=== PATIENT | female | born 1990 | race Caucasian/White ===

== ENCOUNTER 2016-04-13 16:11 | Emergency (ER) | payer OTHER, MEDICAID ==
[2016-04-13 16:46] VITALS: RESP 16; TEMP 98.8
[2016-04-13] MEDS ORDERED: NS 1,000 ML IV ONE (16:59)
--- NOTE | 2016-04-13 17:01 | EDPHY ---
H & P Time Seen by Provider: 04/13/16 16:41 HPI/ROS: Chief complaint. Abdominal pain HPI. Patient is a 25-year-old female with low abdominal cramping for 4 days. Some throbbing yesterday in the left lower quadrant but now bilateral low abdominal pain. Hurts to walk. She has a history of ovarian cyst and this feels similar. She has been on control pills to control her ovarian cyst but she is out of her control pills. She also has a history of ulcerative colitis but feels that this is in remission. She has had no fever blood in her stool nor typical discomfort. She does not feel that this is her ulcerative colitis. She has no urinary symptoms. ROS Constitutional. no fever/chills, no weakness Eyes. no problems with vision ENT. no sore throat, no nasal drainage Cardiovascular. no chest pain Respiratory. no shortness of breath, no cough Abdominal. Low abdominal pain . no problems urinating MS. no calf pain/swelling, no neck/back pain, no joint pain Skin. no rash Lymph. no swollen glands Neuro. no headache, no dizziness, no difficulty walking or with speech Past Medical/Surgical History: Ulcerative colitis and ovarian cysts Social History: Single, nonsmoker, no alcohol Smoking Status: Never smoked Physical Exam: General Appearance: Alert pleasant well-developed female mild distress vital signs stable Eyes: Pupils equal and round no pallor or injection. ENT, Mouth: Mucous membranes are moist. Respiratory: There are no retractions, lungs are clear to auscultation. Cardiovascular: Regular rate and rhythm. Gastrointestinal: Abdomen is soft with suprapubic tenderness bilaterally. No tenderness at McBurney's point. Normal bowel sounds. No masses Neurological: Awake and alert, sensory and motor exams grossly normal. Skin: Warm and dry, no rashes. Musculoskeletal: Neck is supple nontender. Extremities symmetrical, full range of motion. Psychiatric: Patient is oriented X 3, there is no agitation. Constitutional: Initial Vital Signs Temperature (C) 37.1 C 04/13/16 16:19 Heart Rate 74 17 16:19 Respiratory Rate 16 04/13/16 16:19 Blood Pressure 119/72 04/13/16 16:19 O2 Sat (%) 98 04/13/16 16:19 O2 Delivery Mode Room Air Allergies/Adverse Reactions: No Known Allergies Allergy (Unverified 10/06/15 21:17) Home Medications: Medication Instructions Recorded Cephalexin [Keflex (*)] 500 mg PO TID #21 cap 10/06/15 Phenazopyridine HCl [Pyridium] 200 mg PO TID #6 tab 10/06/15 sulfaSALAzine [Azulfidine 500 MG 500 mg PO [facility] 10/06/15 (*)] Cephalexin [Keflex (*)] 500 mg PO TID #10 cap 04/13/16 Hydrocodone/APAP 5/325 [[place] 1 each PO Q4-6PRN PRN #14 tab 04/13/16 5/325 (*)] Medical Decision Making - Diagnostics Imaging: Ultrasound reviewed by me and discussed with Dr. Ladd shows multiple follicular cysts but no dominant cyst. Procedures: IV normal saline. Morphine for pain. Zofran for nausea prevention ED Course/Re-evaluation: Re-evaluation at 6:40 p.m. patient is stable. She is feeling better. She and I discussed imaging and lab results, treatment plan, importance of follow-up as well as criteria for return. Patient expresses understanding and agreement Differential Diagnosis: This could certainly be ovarian cyst though no single dominant ovarian cyst is seen. She could have a collapsed ovarian cyst. I also considered ectopic , miss placement of the IUD which seems to be in normal placement. She does have some evidence of mild urinary tract infection which we will treat as well. At this point no evidence for flare of ulcerative colitis - Data Points Laboratory Results: Laboratory Results 04/13/16 13:52 04/13/16 13:52 04/13/16 04/13/16 04/13/16 17:05 13:52 13:52 WBC RBC Hgb Hct MCV MCH MCHC RDW Plt Count MPV Neut % (Auto) Lymph % (Auto) [place] % (Auto) Eos % (Auto) Baso % (Auto) Nucleat RBC Rel Count Absolute Neuts (auto) Absolute Lymphs (auto) Absolute Monos (auto) Absolute Eos (auto) Absolute Basos (auto) Absolute Nucleated RBC Immature Gran % Immature Gran # Sodium 139 mEq/L mEq/L (134-144) Potassium 4.0 mEq/L mEq/L (3.5-5.2) Chloride 104 mEq/L mEq/L (97-110) Carbon Dioxide 24 mEq/l mEq/l (22-31) Anion Gap 11 mEq/L mEq/L (8-16) BUN 10 mg/dL mg/dL (7-23) Creatinine 0.6 mg/dL mg/dL (0.6-1.0) Estimated GFR > 60 Glucose 81 mg/dL mg/dL (70-100) Calcium 9.1 mg/dL mg/dL (8.5-10.4) Beta HCG, Qual NEGATIVE Urine Color YELLOW Urine Appearance CLEAR Urine pH 6.0 (5.0-7.5) Ur Specific Pierz 1.015 (1.002-1.030) Urine Protein NEGATIVE (NEGATIVE) Urine Ketones NEGATIVE (NEGATIVE) Urine Blood NEGATIVE (NEGATIVE) Urine Nitrate NEGATIVE (NEGATIVE) Urine Bilirubin NEGATIVE (NEGATIVE) Urine Urobilinogen NEGATIVE EU EU (0.2-1.0) Ur Leukocyte Esterase TRACE H (NEGATIVE) Urine RBC 1-3 /hpf /hpf (0-3) Urine WBC 3-5 /hpf H /hpf (0-3) Ur Epithelial Cells TRACE /lpf /lpf (NONE-1+) Urine Bacteria TRACE /hpf H /hpf (NONE SEEN) Urine Mucus TRACE /lpf /lpf (NONE-1+) Ur Culture Indicated? INDICATED H (NI) Urine Glucose NEGATIVE (NEGATIVE) 04/13/16 13:52 WBC 6.33 10^3/uL 10^3/uL (3.80-9.50) RBC 4.32 10^6/uL 10^6/uL (4.18-5.33) Hgb 14.2 g/dL g/dL (12.6-16.3) Hct 40.0 % % (38.0-47.0) MCV 92.6 fL fL (81.5-99.8) MCH 32.9 pg pg (27.9-34.1) MCHC 35.5 g/dL g/dL (32.4-36.7) RDW 12.1 % % (11.5-15.2) Plt Count 194 10^3/uL 10^3/uL (150-400) MPV 11.1 fL fL (8.7-11.7) Neut % (Auto) 50.6 % % (39.3-74.2) Lymph % (Auto) 40.3 % % (15.0-45.0) [place] % (Auto) 7.9 % % (4.5-13.0) Eos % (Auto) 0.8 % % (0.6-7.6) Baso % (Auto) 0.2 % L % (0.3-1.7) Nucleat RBC Rel Count 0.0 % % (0.0-0.2) Absolute Neuts (auto) 3.21 10^3/uL 10^3/uL (1.70-6.50) Absolute Lymphs (auto) 2.55 10^3/uL 10^3/uL (1.00-3.00) Absolute Monos (auto) 0.50 10^3/uL 10^3/uL (0.30-0.80) Absolute Eos (auto) 0.05 10^3/uL 10^3/uL (0.03-0.40) Absolute Basos (auto) 0.01 10^3/uL L 10^3/uL (0.02-0.10) Absolute Nucleated RBC 0.00 10^3/uL 10^3/uL (0-0.01) Immature Gran % 0.2 % % (0.0-1.1) Immature Gran # 0.01 10^3/uL 10^3/uL (0.00-0.10) Sodium Potassium Chloride Carbon Dioxide Anion Gap BUN Creatinine Estimated GFR Glucose Calcium Beta HCG, Qual Urine Color Urine Appearance Urine pH Ur Specific Pierz Urine Protein Urine Ketones Urine Blood Urine Nitrate Urine Bilirubin Urine Urobilinogen Ur Leukocyte Esterase Urine RBC Urine WBC Ur Epithelial Cells Urine Bacteria Urine Mucus Ur Culture Indicated? Urine Glucose Medications Given: Discontinued Medications Fentanyl (Sublimaze) 100 mcg IVP EDNOW ONE Stop: 04/13/16 17:22 Last Admin: 04/13/16 17:34 Dose: 100 mcg Sodium Chloride (Ns) 1,000 mls @ 0 mls/hr IV ONCE ONE PRN Reason: Wide Open Stop: 04/13/16 17:00 Last Admin: 04/13/16 17:02 Dose: 1,000 mls Ondansetron HCl (Zofran) 4 mg IVP EDNOW ONE Stop: 04/13/16 17:22 Last Admin: 04/13/16 17:33 Dose: 4 mg Departure - Departure Disposition: Home, Routine, Self-Care Clinical Impression: Urinary tract infection Qualifiers: Urinary tract infection type: acute cystitis Hematuria presence: without hematuria Qualified Code(s): N30.00 - Acute cystitis without hematuria Ovarian cyst Qualifiers: Laterality: unspecified laterality Qualified Code(s): N83.209 - Unspecified ovarian cyst, unspecified side Condition: Good Instructions: Urinary Tract Infection in Women (ED), Ovarian Cyst (ED) Additional Instructions: Drink plenty of fluids and stay hydrated. Ibuprofen 600 mg every 6 hours for discomfort. Hydrocodone also as needed for discomfort. Cephalexin is antibiotic. Return for worsening pain, fever, vomiting. Recheck in 2 days if not improved Referrals: River Sousa DO [Primary Care Provider] - 2-3 days, if not improved Prescriptions: Cephalexin [Keflex (*)] 500 mg PO TID #10 cap Hydrocodone/APAP 5/325 [[place] 5/325 (*)] 1 each PO Q4-6PRN PRN #14 tab PRN Reason: Pain, Moderate
[2016-04-13 17:11] LABS: % IMMATURE GRANULYOCYTES 0.2 % (0.0-1.1); ABSOLUTE IMMATURE GRANULOCYTES 0.01 10^3/uL (0.00-0.10); ADD DIFF? NO; ADD MORPH? NO; ADD SCAN? NO; ATYPICAL LYMPHOCYTE FLAG 20 (0-99); FRAGMENT RBC FLAG 0 (0-99); HEMOGLOBIN 14.2 g/dL (12.6-16.3); LEFT SHIFT FLG 0 (0-99); LIPEMIA HEMOLYSIS FLAG 90 (0-99); MEAN CELL HEMOGLOBIN 32.9 pg (27.9-34.1); MEAN CELL HEMOGLOBIN CONCENTR. 35.5 g/dL (32.4-36.7); MEAN CELL VOLUME 92.6 fL (81.5-99.8); MEAN PLATELET VOLUME 11.1 fL (8.7-11.7); PLATELET CLUMPS FLAG 0 (0-99); PLATELET COUNT 194 10^3/uL (150-400); RED BLOOD CELL COUNT 4.32 10^6/uL (4.18-5.33); RED CELL DISTRIBUTION WIDTH 12.1 % (11.5-15.2)
[2016-04-13 17:16] LABS: COLOR YELLOW; LEUKOCYTE ESTERASE,URINE TRACE (NEGATIVE); NITRITE,URINE NEGATIVE (NEGATIVE)
[2016-04-13] MEDS ORDERED: ONDANSETRON 4 MG/2 ML VIAL IVP ONE (17:21)
[2016-04-13] MEDS ORDERED: fentaNYL 100 MCG/2 ML INJ IVP ONE (17:21)
[2016-04-13 17:34] LABS: BACTERIA TRACE /hpf (NONE SEEN); MUCUS TRACE /lpf (NONE-1+)
[2016-04-13 17:34] LABS: ANION GAP 11 mEq/L (8-16); CALCIUM 9.1 mg/dL (8.5-10.4); CARBON DIOXIDE 24 mEq/l (22-31); CHLORIDE 104 mEq/L (97-110); CREATININE 0.6 mg/dL (0.6-1.0); GLOMERULAR FILTRATION RATE > 60; GLUCOSE 81 mg/dL (70-100); SODIUM 139 mEq/L (134-144)
[2016-04-13 19:11] VITALS: BP 119/62; PULSE 77; O2SAT 99
== END 2016-04-13 19:09 | disposition home or self-care (01) ==
DX: N30.00 Acute cystitis without hematuria (principal); B96.89 Other specified bacterial agents as the cause of diseases classified elsewhere; N83.209 Unspecified ovarian cyst, unspecified side
CPT/HCPCS: 96374; J2405; J3010

== ENCOUNTER → 2016-08-14 | Outpatient (CLI) | payer OTHER, MEDICAID | LOC: FIMAGING 17:06 | PROVIDERS: ATTEND Family Medicine | DX: M54.41 Lumbago with sciatica, right side (principal) ==

== ENCOUNTER → 2016-08-18 | Outpatient (CLI) | payer OTHER, MEDICAID | LOC: CIMAGING 14:18 | PROVIDERS: ATTEND Family Medicine | DX: M54.9 Dorsalgia, unspecified (principal); N20.0 Calculus of kidney; K76.0 Fatty (change of) liver, not elsewhere classified; N83.202 Unspecified ovarian cyst, left side | CPT/HCPCS: 74176-PO ==

== ENCOUNTER 2016-12-18 13:50 | Emergency (ER) | payer MEDICAID, OTHER ==
[2016-12-18 13:55] VITALS: RESP 16; TEMP 98.6
[2016-12-18] MEDS ORDERED: predniSONE 20 MG TAB PO ONE (15:03)
[2016-12-18] MEDS ORDERED: NS 1,000 ML IV ONE (15:03)
--- NOTE | 2016-12-18 15:06 | EDPHY ---
H & P Stated Complaint: 3 Weeks of symptoms of ulcerative colitis - abdo pain, bloody stool Time Seen by Provider: 12/18/16 14:55 HPI/ROS: CHIEF COMPLAINT: Ulcerative colitis flare HISTORY OF PRESENT ILLNESS: Patient is a 26-year-old female who comes to the emergency department complaining of an ulcerative colitis flare. She was just diagnosed with ulcerative colitis this summer and takes sulfasalazine daily. She began having a flare 3 weeks ago with abdominal cramping, pain and bloody diarrhea. No fever. She saw Dr. De Jesus her gastrologist on Sunday and had a flexible sigmoidoscopy the confirm the diagnosis of ulcerative colitis flare. She was started on 40 mg of prednisone daily which she has taken for 3 days. No fevers. She states that her symptoms continue and have not improved. She was told by the gastrologist to come to the ER she is not improving. She has been able to hydrate and take p.o.. REVIEW OF SYSTEMS: Constitutional: denies: chills, fever, recent illness, recent injury EENTM: denies: blurred vision, double vision, nose congestion Respiratory: denies: cough, shortness of breath Cardiac: denies: chest pain, irregular heart rate, lightheadedness, palpitations Gastrointestinal/Abdominal: See HPI Genitourinary: denies: dysuria, frequency, hematuria, pain Musculoskeletal: denies: joint pain, muscle pain Skin: denies: lesions, rash, jaundice, bruising Neurological: denies: headache, numbness, paresthesia, tingling, dizziness, weakness Hematologic/Lymphatic: denies: blood clots, easy bleeding, easy bruising Immunologic/allergic: denies: HIV/AIDS, transplant EXAM: GENERAL: Well-appearing, well-nourished and in no acute distress. HEAD: Atraumatic, normocephalic. EYES: Pupils equal round and reactive to light, extraocular movements intact, sclera anicteric, conjunctiva are normal. ENT: TMs normal, nares patent, oropharynx clear without exudates. Moist mucous membranes. NECK: Normal range of motion, supple without lymphadenopathy or JVD. LUNGS: Breath sounds clear to auscultation bilaterally and equal. No wheezes rales or rhonchi. HEART: Regular rate and rhythm without murmurs, rubs or gallops. ABDOMEN: Soft, nontender, normoactive bowel sounds. No guarding, no rebound. No masses appreciated. BACK: No CVA tenderness, no spinal tenderness, step-offs or deformities EXTREMITIES: Normal range of motion, no pitting or edema. No clubbing or cyanosis. NEUROLOGICAL: Cranial nerves II through XII grossly intact. Normal speech, normal gait. 5/5 strength, normal movement in all extremities, normal sensation PSYCH: Normal mood, normal affect. SKIN: Warm, dry, normal turgor, no visible rashes or lesions. Source: Patient Exam Limitations: No limitations - Personal History LMP (Females 10-55): 22-28 Days Ago Current Tetanus Diphtheria and Acellular Pertussis (TDAP): Yes - Medical/Surgical History Hx Asthma: No Hx Chronic Respiratory Disease: No Hx Diabetes: No Hx Cardiac Disease: No Hx Renal Disease: No Hx Cirrhosis: No Hx Alcoholism: No Hx HIV/AIDS: No Hx Splenectomy or Spleen Trauma: No Other PMH: PMH: ulcerative colitis. PSH: - Family History Significant Family History: No pertinent family hx - Social History Smoking Status: Never smoked Alcohol Use: Sober Drug Use: None Constitutional: Initial Vital Signs Temperature (C) 37 C 12/18/16 13:51 Heart Rate 75 12/18/16 13:51 Respiratory Rate 16 12/18/16 13:51 Blood Pressure 117/71 12/18/16 13:51 O2 Sat (%) 98 12/18/16 13:51 O2 Delivery Mode Room Air Allergies/Adverse Reactions: No Known Allergies Allergy (Unverified 10/06/15 21:17) Home Medications: Medication Instructions Recorded Cephalexin [Keflex (*)] 500 mg PO TID #21 cap 10/06/15 Phenazopyridine HCl [Pyridium] 200 mg PO TID #6 tab 10/06/15 sulfaSALAzine [Azulfidine 500 MG 500 mg PO [facility] 10/06/15 (*)] Cephalexin [Keflex (*)] 500 mg PO TID #10 cap 04/13/16 Hydrocodone/APAP 5/325 [[place] 1 each PO Q4-6PRN PRN #14 tab 04/13/16 5/325 (*)] predniSONE 60 mg PO DAILY #15 tab 12/18/16 Medical Decision Making ED Course/Re-evaluation: The patient's abdominal exam is benign. I will hydrate and check laboratory values and discussed with a gastrologist. Will also increase her steroid dose. She was told previously that they might start her on Remicade. 4:45 p.m. the patient's lab work is reassuring. Her abdominal exam is benign. I spoke with Dr. Couch who agrees with increasing steroids and follow up in the office. They will seek approval for Remicade. Differential Diagnosis: Partial list of the Differential diagnosis considered include but were not limited to; ulcerative colitis, appendicitis, diverticulitis and although unlikely based on the history and physical exam, I also considered obstruction, ischemia, volvulus. I discussed these differential diagnoses and the plan with the patient as well as the usual and expected course. The patient understands that the diagnosis is provisional and that in medicine we are not always correct and that further workup is often warranted. Usual and customary warnings were given. All of the patient's questions were answered. The patient was instructed to return to the emergency department should the symptoms at all worsen or return, otherwise to followup with the physician as we discussed. - Data Points Laboratory Results: Laboratory Results 12/18/16 14:48 12/18/16 14:48 12/18/16 12/18/16 14:48 14:48 WBC 9.01 10^3/uL 10^3/uL (3.80-9.50) RBC 4.39 10^6/uL 10^6/uL (4.18-5.33) Hgb 14.1 g/dL g/dL (12.6-16.3) Hct 39.6 % % (38.0-47.0) MCV 90.2 fL fL (81.5-99.8) MCH 32.1 pg pg (27.9-34.1) MCHC 35.6 g/dL g/dL (32.4-36.7) RDW 12.8 % % (11.5-15.2) Plt Count 273 10^3/uL 10^3/uL (150-400) MPV 10.0 fL fL (8.7-11.7) Neut % (Auto) 73.2 % % (39.3-74.2) Lymph % (Auto) 17.2 % % (15.0-45.0) [place] % (Auto) 3.4 % L % (4.5-13.0) Eos % (Auto) 4.8 % % (0.6-7.6) Baso % (Auto) 0.8 % % (0.3-1.7) Nucleat RBC Rel Count 0.0 % % (0.0-0.2) Absolute Neuts (auto) 6.60 10^3/uL H 10^3/uL (1.70-6.50) Absolute Lymphs (auto) 1.55 10^3/uL 10^3/uL (1.00-3.00) Absolute Monos (auto) 0.31 10^3/uL 10^3/uL (0.30-0.80) Absolute Eos (auto) 0.43 10^3/uL H 10^3/uL (0.03-0.40) Absolute Basos (auto) 0.07 10^3/uL 10^3/uL (0.02-0.10) Absolute Nucleated RBC 0.00 10^3/uL 10^3/uL (0-0.01) Immature Gran % 0.6 % % (0.0-1.1) Immature Gran # 0.05 10^3/uL 10^3/uL (0.00-0.10) Sodium 141 mEq/L mEq/L (134-144) Potassium 3.7 mEq/L mEq/L (3.5-5.2) Chloride 105 mEq/L mEq/L (97-110) Carbon Dioxide 23 mEq/l mEq/l (22-31) Anion Gap 13 mEq/L mEq/L (8-16) BUN 8 mg/dL mg/dL (7-23) Creatinine 0.6 mg/dL mg/dL (0.6-1.0) Estimated GFR > 60 Glucose 98 mg/dL mg/dL (70-100) Calcium 9.0 mg/dL mg/dL (8.5-10.4) Medications Given: Discontinued Medications Sodium Chloride (Ns) 1,000 mls @ 0 mls/hr IV EDNOW ONE; Wide Open PRN Reason: Protocol Stop: 12/18/16 15:04 Last Admin: 12/18/16 15:07 Dose: 1,000 mls Prednisone (Prednisone) 20 mg PO EDNOW ONE Stop: 12/18/16 15:04 Last Admin: 12/18/16 15:10 Dose: 20 mg Departure - Departure Disposition: Home, Routine, Self-Care Clinical Impression: Ulcerative colitis Qualifiers: Ulcerative colitis location: other ulcerative colitis Digestive disease complication type: without complication Qualified Code(s): K51.80 - Other ulcerative colitis without complications Condition: Fair Instructions: Ulcerative Colitis (ED) Referrals: River Sousa DO [Primary Care Provider] - As per Instructions Matthew De Jesus MD [Medical Doctor] - As per Instructions Prescriptions: predniSONE 60 mg PO DAILY #15 tab
[2016-12-18 15:11] LABS: % IMMATURE GRANULYOCYTES 0.6 % (0.0-1.1); ABSOLUTE IMMATURE GRANULOCYTES 0.05 10^3/uL (0.00-0.10); ADD DIFF? NO; ADD MORPH? NO; ADD SCAN? NO; ATYPICAL LYMPHOCYTE FLAG 50 (0-99); FRAGMENT RBC FLAG 0 (0-99); HEMATOCRIT 39.6 % (38.0-47.0); HEMOGLOBIN 14.1 g/dL (12.6-16.3); LEFT SHIFT FLG 30 (0-99); LIPEMIA HEMOLYSIS FLAG 90 (0-99); MEAN CELL HEMOGLOBIN 32.1 pg (27.9-34.1); MEAN CELL HEMOGLOBIN CONCENTR. 35.6 g/dL (32.4-36.7); MEAN CELL VOLUME 90.2 fL (81.5-99.8); PLATELET CLUMPS FLAG 10 (0-99); PLATELET COUNT 273 10^3/uL (150-400); RED BLOOD CELL COUNT 4.39 10^6/uL (4.18-5.33); RED CELL DISTRIBUTION WIDTH 12.8 % (11.5-15.2)
[2016-12-18 15:22] LABS: ANION GAP 13 mEq/L (8-16); CARBON DIOXIDE 23 mEq/l (22-31); CHLORIDE 105 mEq/L (97-110); CREATININE 0.6 mg/dL (0.6-1.0); GLOMERULAR FILTRATION RATE > 60; GLUCOSE 98 mg/dL (70-100); POTASSIUM 3.7 mEq/L (3.5-5.2); SODIUM 141 mEq/L (134-144)
[2016-12-18 16:58] VITALS: BP 99/61; PULSE 68; O2SAT 96
== END 2016-12-18 16:58 | disposition home or self-care (01) ==
PROC: 3E0337Z Introduction of Electrolytic and Water Balance Substance into Peripheral Vein, Percutaneous Approach (ICD-10-PCS; principal; 2016-12-18)
DX: K51.80 Other ulcerative colitis without complications (principal); E86.9 Volume depletion, unspecified

== ENCOUNTER 2016-12-27 09:04 | Inpatient (IN) | payer OTHER ==
--- NOTE | 2016-12-27 09:23 | EDPHY ---
H & P Stated Complaint: UC FLARE NOT RESPONDING TO PREDNISONE/RECTAL BLEEDING Time Seen by Provider: 12/27/16 09:22 HPI/ROS: CHIEF COMPLAINT: History of ulcerative colitis, ongoing bleeding HISTORY OF PRESENT ILLNESS: The patient presents to the ED with complaints of ongoing lower GI bleeding. She states this is been occurring for the past several weeks. She has a history of ulcerative colitis. The patient has been on prednisone for several weeks. She recently taper her prednisone from 60 mg a day to 50 mg a day. The patient is notice some increased bleeding and cramping today. She denies fever or vomiting. The patient is taking no additional medications aside from prednisone. She had been on sulfasalazine in the past. REVIEW OF SYSTEMS: A comprehensive 10 point review of systems is otherwise negative aside from elements mentioned in the history of present illness. Source: Patient Exam Limitations: No limitations - Personal History LMP (Females 10-55): IUD In Place Current Tetanus/Diphtheria Vaccine: Yes - Medical/Surgical History Hx Asthma: No Hx Chronic Respiratory Disease: No Hx Diabetes: No Hx Cardiac Disease: No Hx Renal Disease: No Hx Cirrhosis: No Hx Alcoholism: No Hx HIV/AIDS: No Hx Splenectomy or Spleen Trauma: No Other PMH: PMH: ulcerative colitis. PSH: - Social History Smoking Status: Never smoked - Physical Exam Exam: General Appearance: Alert, no distress Eyes: Pupils equal and round no pallor or injection ENT, Mouth: Mucous membranes moist Respiratory: There are no retractions, lungs are clear to auscultation Cardiovascular: Regular rate and rhythm Gastrointestinal: Abdomen is soft and nontender, no masses, bowel sounds normal Neurological: A&O, normal motor function, normal sensory exam, normal cranial nerves Skin: Warm and dry, no rashes Musculoskeletal: Neck is supple nontender Extremities: symmetrical, full range of motion Constitutional: Initial Vital Signs Temperature (C) 37.4 C 12/27/16 09:19 Heart Rate 87 12/27/16 09:19 Respiratory Rate 17 12/27/16 09:19 Blood Pressure 120/75 12/27/16 09:19 O2 Sat (%) 96 12/27/16 09:19 O2 Delivery Mode Room Air Allergies/Adverse Reactions: No Known Allergies Allergy (Verified 12/27/16 09:18) Home Medications: Medication Instructions Recorded predniSONE 60 mg PO DAILY #15 tab 12/18/16 Medical Decision Making ED Course/Re-evaluation: The patient presents to the ED with complaints of ongoing abdominal pain and bleeding. She has a history of ulcerative colitis and is currently on prednisone. In the emergency department today she has no evidence of an acute abdomen. Her hematocrit is stable. Her vital signs are also stable. The patient's other laboratory studies including electrolytes and renal function are within normal limits. I spoke with Dr. Barrett onto his covering the GI service. At this point time there is not an indication for hospitalization. The patient likely needs to be considered for Remicade infusion. This can be facilitated as an outpatient. Dr. Barrett will make sure the patient is able to be seen in the office within the next day. The patient will be discharged home with instructions to return to the ED for markedly worsening symptoms, heavy bleeding or other concerns. Differential Diagnosis: Differential diagnosis considered includes upper GI bleed, lower GI bleed, inflammatory bowel disease, metabolic abnormality, dehydration - Data Points Laboratory Results: Laboratory Results 12/27/16 09:40 12/27/16 09:40 12/27/16 12/27/16 12/27/16 09:40 09:40 09:40 WBC 12.58 10^3/uL H 10^3/uL (3.80-9.50) RBC 4.06 10^6/uL L 10^6/uL (4.18-5.33) Hgb 13.0 g/dL g/dL (12.6-16.3) Hct 36.4 % L % (38.0-47.0) MCV 89.7 fL fL (81.5-99.8) MCH 32.0 pg pg (27.9-34.1) MCHC 35.7 g/dL g/dL (32.4-36.7) RDW 12.6 % % (11.5-15.2) Plt Count 255 10^3/uL 10^3/uL (150-400) MPV 9.6 fL fL (8.7-11.7) Neut % (Auto) 59.0 % % (39.3-74.2) Lymph % (Auto) 30.0 % % (15.0-45.0) [place] % (Auto) 5.6 % % (4.5-13.0) Eos % (Auto) 4.3 % % (0.6-7.6) Baso % (Auto) 0.4 % % (0.3-1.7) Nucleat RBC Rel Count 0.0 % % (0.0-0.2) Absolute Neuts (auto) 7.42 10^3/uL H 10^3/uL (1.70-6.50) Absolute Lymphs (auto) 3.78 10^3/uL H 10^3/uL (1.00-3.00) Absolute Monos (auto) 0.70 10^3/uL 10^3/uL (0.30-0.80) Absolute Eos (auto) 0.54 10^3/uL H 10^3/uL (0.03-0.40) Absolute Basos (auto) 0.05 10^3/uL 10^3/uL (0.02-0.10) Absolute Nucleated RBC 0.00 10^3/uL 10^3/uL (0-0.01) Immature Gran % 0.7 % % (0.0-1.1) Immature Gran # 0.09 10^3/uL 10^3/uL (0.00-0.10) Sodium 141 mEq/L mEq/L (134-144) Potassium 3.7 mEq/L mEq/L (3.5-5.2) Chloride 104 mEq/L mEq/L (97-110) Carbon Dioxide 23 mEq/l mEq/l (22-31) Anion Gap 14 mEq/L mEq/L (8-16) BUN 9 mg/dL mg/dL (7-23) Creatinine 0.6 mg/dL mg/dL (0.6-1.0) Estimated GFR > 60 Glucose 85 mg/dL mg/dL (70-100) Calcium 8.3 mg/dL L mg/dL (8.5-10.4) Beta HCG, Qual NEGATIVE Departure - Departure Disposition: Home, Routine, Self-Care Clinical Impression: Ulcerative colitis Condition: Good Instructions: Ulcerative Colitis (ED) Additional Instructions: 1. Please continue your prednisone as directed. 2. Please contact your regular regional sales associate to make an appointment to be seen within the next day. They will likely need to consider you for a Remicade infusion. 3. Return to the emergency department for severe pain, heavy bleeding, lightheadedness or other concerns. 4. Your blood count and electrolytes are within normal limits today. Referrals: River Sousa DO [Primary Care Provider] - As per Instructions
[2016-12-27 09:49] LABS: PLATELET COUNT 255 10^3/uL (150-400)
[2016-12-27] MEDS ORDERED: methylPREDNISolone SOD SUCC 125 MG/2 ML VIAL IVP ONE (11:30)
[2016-12-27] MEDS ORDERED: ACETAMINOPHEN 325 MG TAB PO ONE (12:07)
[2016-12-27] MEDS ORDERED: HYDROmorphONE/DILAUDID 1 MG/ML INJ IVP PRN (13:29)
[2016-12-27] MEDS ORDERED: ONDANSETRON DISINTEGRATING 4 MG TAB PO PRN (13:29)
[2016-12-27] MEDS ORDERED: ONDANSETRON 4 MG/2 ML VIAL IVP PRN (13:29)
[2016-12-27] MEDS ORDERED: diphenhydrAMINE 50 MG CAP PO PRN (13:29)
[2016-12-27] MEDS ORDERED: ACETAMINOPHEN 325 MG TAB PO PRN (13:29)
[2016-12-27] MEDS ORDERED: oxyCODONE IR 5 MG TAB PO PRN (13:29)
[2016-12-27] MEDS ORDERED: predniSONE 20 MG TAB PO PRN (13:29)
[2016-12-27] MEDS ORDERED: LORazepam 0.5 MG TAB PO PRN (13:29)
[2016-12-27] MEDS ORDERED: NS 1,000 ML IV SCH (13:30)
[2016-12-27] MEDS: NS 1,000 ML IV SCH (14:33)
[2016-12-27] MEDS: methylPREDNISolone SOD SUCC 40 MG/ML VIAL IVP SCH ×2 (14:33→22:18)
[2016-12-27] MEDS ORDERED: INFLIXIMAB-DYYB 300 MG in NS 250 ML IV ONE (15:00)
[2016-12-27 16:17] VITALS: RESP 16
--- NOTE | 2016-12-27 17:20 | PDGENHP ---
History and Physical - Chief Complaint bleeding per rectum - History of Present Illness 26 yo F with PMH of UC presenting to ER with complaints of increased bleeding per rectum as well as diarrhea and cramping abdominal pain. She is followed by GI who had recently started her on prednisone and despite that her sxs have remained continuous. She denies fever or chills. She has not had weight loss. She is not dizzy or sob. She has not had any other changes in her health recently. History Information - Allergies/Home Medication List Allergies/Adverse Reactions: No Known Allergies Allergy (Verified 12/27/16 09:18) Home Medications: predniSONE [predniSONE] 50 mg PO DAILY 12/27/16 [Last Taken 12/26/16] I have personally reviewed and updated: family history, medical history, social history, surgical history - Past Medical History Additional medical history: ulcerative colitis--pancolitis - Surgical History Reports: no pertinent surgical hx - Family History Additional family history: no family members with UC - Social History Smoking Status: Never smoked Alcohol Use: Rarely Drug Use: None Review of Systems Review of Systems: ROS: 10pt was reviewed & negative except for what was stated in HPI & below Physical Exam Physical Exam: Temp Pulse Resp BP Pulse Ox 36.7 C 73 16 107/68 92 12/27/16 17:06 12/27/16 17:06 12/27/16 17:06 12/27/16 17:06 12/27/16 17:06 Constitutional: no apparent distress, appears nourished Eyes: PERRL, anicteric sclera Ears, Nose, Mouth, Throat: moist mucous membranes, hearing normal Cardiovascular: regular rate and rhythym, no murmur, rub, or gallop, No edema Respiratory: no respiratory distress, no rales or rhonchi Gastrointestinal: soft, non-tender abdomen, No normoactive bowel sounds, No guarding, No rebound, No distension Genitourinary: no bladder fullness, no bladder tenderness Skin: warm, normal color Musculoskeletal: full muscle strength Neurologic: AAOx3 Psychiatric: interacting appropriately, not anxious, not encephalopathic Lab Data & Imaging Review 12/27/16 09:40 12/27/16 09:40 WBC 12.58 10^3/uL (3.80-9.50) H 12/27/16 09:40 RBC 4.06 10^6/uL (4.18-5.33) L 12/27/16 09:40 Hgb 13.0 g/dL (12.6-16.3) 12/27/16 09:40 Hct 36.4 % (38.0-47.0) L 12/27/16 09:40 MCV 89.7 fL (81.5-99.8) 12/27/16 09:40 MCH 32.0 pg (27.9-34.1) 12/27/16 09:40 MCHC 35.7 g/dL (32.4-36.7) 12/27/16 09:40 RDW 12.6 % (11.5-15.2) 12/27/16 09:40 Plt Count 255 10^3/uL (150-400) 12/27/16 09:40 MPV 9.6 fL (8.7-11.7) 12/27/16 09:40 Neut % (Auto) 59.0 % (39.3-74.2) 12/27/16 09:40 Lymph % (Auto) 30.0 % (15.0-45.0) 12/27/16 09:40 [place] % (Auto) 5.6 % (4.5-13.0) 12/27/16 09:40 Eos % (Auto) 4.3 % (0.6-7.6) 12/27/16 09:40 Baso % (Auto) 0.4 % (0.3-1.7) 12/27/16 09:40 Nucleat RBC Rel Count 0.0 % (0.0-0.2) 12/27/16 09:40 Absolute Neuts (auto) 7.42 10^3/uL (1.70-6.50) H 12/27/16 09:40 Absolute Lymphs (auto) 3.78 10^3/uL (1.00-3.00) H 12/27/16 09:40 Absolute Monos (auto) 0.70 10^3/uL (0.30-0.80) 12/27/16 09:40 Absolute Eos (auto) 0.54 10^3/uL (0.03-0.40) H 12/27/16 09:40 Absolute Basos (auto) 0.05 10^3/uL (0.02-0.10) 12/27/16 09:40 Absolute Nucleated RBC 0.00 10^3/uL (0-0.01) 12/27/16 09:40 Immature Gran % 0.7 % (0.0-1.1) 12/27/16 09:40 Immature Gran # 0.09 10^3/uL (0.00-0.10) 12/27/16 09:40 Sodium 141 mEq/L (134-144) 12/27/16 09:40 Potassium 3.7 mEq/L (3.5-5.2) 12/27/16 09:40 Chloride 104 mEq/L (97-110) 12/27/16 09:40 Carbon Dioxide 23 mEq/l (22-31) 12/27/16 09:40 Anion Gap 14 mEq/L (8-16) 12/27/16 09:40 BUN 9 mg/dL (7-23) 12/27/16 09:40 Creatinine 0.6 mg/dL (0.6-1.0) 12/27/16 09:40 Estimated GFR > 60 12/27/16 09:40 Glucose 85 mg/dL (70-100) 12/27/16 09:40 Calcium 8.3 mg/dL (8.5-10.4) L 12/27/16 09:40 Beta HCG, Qual NEGATIVE 12/27/16 09:40 Assessment & Plan Assessment: Ulcerative colitis (Acute) 26 yo F with PMH of UC admitted for UC flare # UC flare: patient with known UC and pancolitis with worsened sxs despite being started on prednisone per GI. Will start IV solumedrol, remicaid infusion overnight per GI recommendations. Will add GI pathogen panel to rule out concurrent infectious process. # leukocytosis: in setting of steroid use and above, will trend, looking for infection as above # anemia: mild and likely due to GI blood loss, will continue to trend # observation status, will likely need < 48 hours stay for eval/mgmt of above, high risk given need for IV steroids Patient new to my care. Old records reviewed and summarized as above. Care plan reviewed with GI as above.
[2016-12-28] MEDS: NS 1,000 ML IV SCH ×3 (00:54→23:29)
[2016-12-28] MEDS: methylPREDNISolone SOD SUCC 40 MG/ML VIAL IVP SCH ×3 (05:30→21:21)
[2016-12-28 05:31] LABS: PLATELET COUNT 294 10^3/uL (150-400)
--- NOTE | 2016-12-28 09:28 | GCON ---
[f rep st] CONSULTATION DATE OF CONSULTATION: 12/28/2016 REASON FOR CONSULTATION: Ulcerative colitis with flare and failure of outpatient steroid therapy. HISTORY OF PRESENT ILLNESS: Amanda is a 26-year-old female followed by Dr. Matthew De Jesus in our practi ce for ulcerative colitis. She has been on high-dose oral steroids and unable to wean off steroids o ashok the last several months. She was having frequent watery bowel movements with blood and abdominal cramping and has had several visits to the emergency room at [facility] over the las t 2 weeks. She was admitted yesterday for initiation of Remicade therapy. I was asked to see the pa tient by Dr. Mayer for further GI input. She has denied any fever, chills, or arthritic complain ts. Her weight has been stable. MEDICATIONS: Prior to admission include prednisone 50 mg daily. ALLERGIES: No known drug allergies. PAST MEDICAL HISTORY: Significant for wesley-ulcerative colitis treated as an outpatient by Dr. De Jesus. PAST SURGICAL HISTORY: Negative. FAMILY HISTORY: Negative for inflammatory bowel disease, peptic ulcer disease, and colon cancer. SOCIAL HISTORY: She is a nonsmoker. Rarely consumes alcohol. Denies any NSAID use. 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 Otherwise negative for 10 systems on my examination today. PHYSICAL EXAMINATION: VITAL SIGNS: Temperature is 36.5 Celsius, pulse is 70 regular, blood pressure 122/78, respiratory rate of 16, O2 saturation 94% on room air. GENERAL: A well-developed, well-nou rished female with mild cushingoid features of the face, in no apparent distress. INTEGUMENT: Clear . HEENT: Head atraumatic, normocephalic. Pupils equal, round, and reactive to light. EOMs intact. Sclerae anicteric. Nares patent. Mucous membranes moist. Dentition good. NECK: Supple. Trache a was midline. LYMPHATICS: No cervical adenopathy or axillary adenopathy. PULMONARY: Lungs clear to percussion and auscultation. CARDIOVASCULAR: Regular rhythm and rate. Normal S1, S2 without mur mur. Peripheral pulses strong bilaterally. No pedal edema. GASTROINTESTINAL: Abdomen supple. Pos itive bowel sounds. No liver or spleen palpable. No masses or tenderness noted. No rebound noted. No fluid wave. EXTREMITIES: Without deformities. NEURO: Alert and oriented x3. No focal neurolo gic deficits. LABORATORY DATA: White count 10.95, hemoglobin 12.6, hematocrit 37.0, RDW 12.7. Electrolytes normal . BUN 8, creatinine 0.6, calcium 8.8. Beta hCG is negative. IMPRESSION: A 26-year-old female with chronic ulcerative colitis with failure of high-dose steroid t herapy, now initiating biologic therapy with Remicade infusion (received infusion last night). RECOMMENDATIONS: 1. Diet as tolerated today. 2. Can switch to oral prednisone tomorrow with planned discharge tomorrow if patient's bowel complai nts have significantly improved. /[id number]/MODL
--- NOTE | 2016-12-28 11:38 | ASMTCMCOM ---
CM Note CM Note Notes: Anticipate pt will have no DC needs. C/M available if needs change. Date Signed: 12/28/2016 11:37 AM Electronically Signed By:Katelyn Glaser LCSW
--- NOTE | 2016-12-28 15:22 | HOSPPROG ---
Hospitalist Progress Note Assessment/Plan: 26 yo F with PMH of UC admitted for UC flare # UC flare: patient with known UC and pancolitis with worsened sxs despite being started on prednisone per GI as an OP. Started on remicade as well as IV steroids yesterday with improved sxs today. GI pathogen panel negative. GI following, recommends continued stay for one more night and dc in am likely on oral steroids. # leukocytosis: in setting of steroid use and above, trended down, no e/o infection # hematochezia: related to UC and improved since starting tx as above # anemia: mild and likely due to GI blood loss, stable # IP status, high risk requiring IV steroids and initiation of high risk medication, remicaid, will need > 48 hours stay for eval/mgmt of above Care plan reviewed with GI as above. Subjective: no significant overnight events, patient currently feeling a bit better, has not had much rectal bleeding yet today Objective: Vital Signs Temp Pulse Resp BP Pulse Ox 36.5 C 70 16 122/78 H 94 12/28/16 08:06 12/28/16 08:06 12/28/16 08:06 12/28/16 08:06 12/28/16 08:06 Microbiology 12/28/16 03:50 Gastrointestinal Tract Panel (PCR) - Final Stool No Organism Detected Laboratory Results 12/28/16 05:06 12/28/16 05:06 12/27/16 12/28/16 12/29/16 05:59 05:59 05:59 Intake Total 1600 Balance 1600 awake alert nad anicteric op clear rrr no mrg cta b soft nt nd no cce warm dry well perfused ICD10 Worksheet Patient Problems: Problems Problem Status Onset Colitis Acute Ulcerative colitis Acute
--- NOTE | 2016-12-28 16:44 | PDMN ---
Medical Necessity Medical necessity: M565 inflammatory bowel disease: req IV steroids- and remicaid, > 23 hours, with hx of UC and pancolitis, - GI rec. cont IV meds/ monitoring of symptoms for another midnight
[2016-12-29 04:17] VITALS: O2SAT 94
[2016-12-29 04:58] LABS: PLATELET COUNT 301 10^3/uL (150-400)
[2016-12-29] MEDS: methylPREDNISolone SOD SUCC 40 MG/ML VIAL IVP SCH (05:31)
[2016-12-29 08:14] VITALS: BP 119/79; PULSE 62; TEMP 98.1
--- NOTE | 2016-12-29 09:45 | HOSPPROG ---
Hospitalist Progress Note Assessment/Plan: #Ulcerative pancolitis: steroid-failure. Initiated on Remicade. Appreciate GI consult. Change to PO steroids today. Minimal symptoms today #Leukocytosis: due to steroids. Negative GI panel #Disp: DC today. FU with Dr. De Jesus Subjective: no rectal bleeding or diarrhea. Eating will. Objective: Vital Signs Temp Pulse Resp BP Pulse Ox 36.7 C 62 16 119/79 94 12/29/16 08:13 12/29/16 08:13 12/29/16 08:13 12/29/16 08:13 12/29/16 08:13 Laboratory Results 12/29/16 04:39 12/29/16 04:39 12/28/16 12/29/16 12/30/16 05:59 05:59 05:59 Intake Total 2965 Balance 2965 - Physical Exam Constitutional: no apparent distress Eyes: PERRL Ears, Nose, Mouth, Throat: moist mucous membranes Cardiovascular: regular rate and rhythym, no murmur, rub, or gallop Respiratory: no respiratory distress, no rales or rhonchi Gastrointestinal: normoactive bowel sounds, soft, non-tender abdomen, No tenderness Genitourinary: no bladder fullness, no bladder tenderness Skin: warm Musculoskeletal: full muscle strength Neurologic: AAOx3 Psychiatric: interacting appropriately ICD10 Worksheet Patient Problems: Problems Problem Status Onset Ulcerative colitis Acute Colitis Acute
--- NOTE | 2016-12-29 11:43 | ASDISCHSUM ---
Discharge Information Plan Status: Medically Cleared to Leave: Discharge Date:12/29/2016 11:30 AM CM D/C Disposition: ADT D/C Disposition:Home, Routine, Self-Care Projected Discharge Date:12/29/2016 11:30 AM Transportation at D/C: Discharge Delay Reason: Follow-Up Date:12/29/2016 11:30 AM Discharge Slot: Final Diagnosis: Placement Information Patient Contact Information Contact Name:LUZ Relationship:Mother Address:[address] [place] [address] [address] Work Phone: City:[employer] Alternate Phone: [facility]/Zip Code:[place] [address] Email: Financial Information Financial Class:Mike [facility] Primary Plan Desc:MIKE [facility] Primary Plan Number:[id number] Secondary Plan Desc: Secondary Plan Number: Assessment Information [facility] CM Progress Note CM Note CM Note Notes: Anticipate pt will have no DC needs. C/M available if needs change. Date Signed: 12/28/2016 11:37 AM Electronically Signed By:Katelyn Glaser LCSW Intervention Information
--- NOTE | 2016-12-29 11:43 | ASDISCHSUM ---
Discharge Information Plan Status: Medically Cleared to Leave: Discharge Date:12/29/2016 11:30 AM CM D/C Disposition: ADT D/C Disposition:Home, Routine, Self-Care Projected Discharge Date:12/29/2016 11:30 AM Transportation at D/C: Discharge Delay Reason: Follow-Up Date:12/29/2016 11:30 AM Discharge Slot: Final Diagnosis: Placement Information Patient Contact Information Contact Name:LUZ Relationship:Mother Address:[address] [place] [address] [address] Work Phone: City:[employer] Alternate Phone: [facility]/Zip Code:[place] [address] Email: Financial Information Financial Class:Mike [facility] Primary Plan Desc:MIKE [facility] Primary Plan Number:[id number] Secondary Plan Desc: Secondary Plan Number: Assessment Information [facility] CM Progress Note CM Note CM Note Notes: Anticipate pt will have no DC needs. C/M available if needs change. Date Signed: 12/28/2016 11:37 AM Electronically Signed By:Katelyn Glaser LCSW Intervention Information
--- NOTE | 2016-12-29 11:43 | ASDISCHSUM ---
Discharge Information Plan Status: Medically Cleared to Leave: Discharge Date:12/29/2016 11:30 AM CM D/C Disposition: ADT D/C Disposition:Home, Routine, Self-Care Projected Discharge Date:12/29/2016 11:30 AM Transportation at D/C: Discharge Delay Reason: Follow-Up Date:12/29/2016 11:30 AM Discharge Slot: Final Diagnosis: Placement Information Patient Contact Information Contact Name:LUZ Relationship:Mother Address:[address] [place] [address] [address] Work Phone: City:[place] Alternate Phone: [facility]/Zip Code:[place] [address] Email: Financial Information Financial Class:Mike [facility] Primary Plan Desc:MIKE [facility] Primary Plan Number:[id number] Secondary Plan Desc: Secondary Plan Number: Assessment Information [facility] CM Progress Note CM Note CM Note Notes: Anticipate pt will have no DC needs. C/M available if needs change. Date Signed: 12/28/2016 11:37 AM Electronically Signed By:Katelyn Glaser LCSW Intervention Information
--- NOTE | 2016-12-29 12:58 | GDS ---
[f rep st] DISCHARGE SUMMARY DISCHARGE DIAGNOSES: 1. Ulcerative colitis flare. 2. Acute blood loss anemia. 3. Leukocytosis. 4. Abdominal pain. HISTORY OF PRESENT ILLNESS: This is a 26-year-old female with history of ulcerative colitis followed by Dr. De Jesus with increased bleeding per rectum and diarrhea. She has recently been on prednisone taper starting at 60, now on 50 mg daily. She is still having persistence symptoms despite being on this medication. She denies any fevers, chills, or sweats. No weight loss. HOSPITAL COURSE BY PROBLEM: 1. Ulcerative colitis flare: CT demonstrated pancolitis. She received a dose of Remicade here and was on intravenous methylprednisone. Today, she has no further diarrhea or bleeding. We will transition her to prednisone 40 mg, which is where she was in her taper. She was to follow up with Dr. De Jesus. 2. Leukocytosis secondary to steroids: No evidence of infection, negative gastrointestinal PCR. 3. Hematochezia: Secondary to ulcerative colitis. 4. Acute blood loss anemia: Hemoglobin and hematocrit are stable, hemodynamically stable. DISPOSITION: Patient stable for discharge. MEDICATIONS: Prednisone 40 mg per previously prescribed prednisone taper. FOLLOWUP: Dr. De Jesus. /[id number]/MODL MTDD
== END 2016-12-29 11:30 | disposition home or self-care (01) | DRG 386 ==
LOC: F1N 13:09 → OBSVTOIN 12-28 16:05
PROVIDERS: ADMIT Internal Medicine; ATTEND Internal Medicine
DX: K51.011 Ulcerative (chronic) pancolitis with rectal bleeding (principal); D62 Acute posthemorrhagic anemia
CPT/HCPCS: 96374; G0378; J2920; J2930; Q5102-ZB

== ENCOUNTER 2017-08-03 18:47 | Emergency (ER) | payer OTHER ==
[2017-08-03 18:56] VITALS: BP 115/76
[2017-08-03] MEDS ORDERED: ONDANSETRON DISINTEGRATING 4 MG TAB PO ONE (19:20)
--- NOTE | 2017-08-03 19:51 | EDPHY ---
H & P Time Seen by Provider: 08/03/17 19:32 HPI/ROS: CHIEF COMPLAINT: Sore throat, vomiting HISTORY OF PRESENT ILLNESS: Patient is a 27-year-old female with a history of ulcerative colitis. She presents to the emergency department with 2 days of sore throat. Her throat is bilateral blood primarily on the left. She has had discharge from her tonsils. She has pain with swallowing. No difficulty breathing. Patient has no fever or chills. She has had multiple episodes of nausea and vomiting. No diarrhea. No abdominal pain. Patient has ulcer colitis but this feels different than her ulcerative colitis flares. REVIEW OF SYSTEMS: My complete review of systems is negative except as mentioned in the HPI. Past Medical/Surgical History: Includes the ulcer colitis Past surgical history: Negative Social history: Patient does not smoke Smoking Status: Never smoked Physical Exam: Vitals noted GENERAL: Well-appearing, in no acute distress, alert. HEENT: Eyes normal to inspection, patient has bilateral pharyngeal erythema with discharge. Uvula is midline. No signs of dehydration. NECK: No thyromegaly, bilateral anterior lymphadenopathy, supple. RESPIRATORY: Clear to auscultation bilaterally, no rales, rhonchi or wheezing. CVS: Regular rate and rhythm, no rubs, murmurs, or gallops. ABDOMEN: Soft, nontender, nondistended, no organomegaly. BACK: Normal to inspection, no CVA tenderness. SKIN: Normal color, no rash, warm, dry. No pallor. EXTREMITIES: No pedal edema, no calf tenderness, no Homans sign or cords, no joint swelling. NEURO/PSYCH: Alert and oriented x3, normal mood and affect, normal motor sensory exam. Constitutional: Initial Vital Signs Temperature (C) 36.6 C 08/03/17 18:55 Heart Rate 92 08/03/17 18:55 Respiratory Rate 16 08/03/17 18:55 Blood Pressure 115/76 08/03/17 18:55 O2 Sat (%) 97 08/03/17 18:55 O2 Delivery Mode Room Air Allergies/Adverse Reactions: No Known Allergies Allergy (Verified 08/03/17 18:54) Home Medications: Medication Instructions Recorded Amoxicillin/Clavulanate Pot 875 mg PO BID 10 Days tab 08/03/17 [Augmentin 875 mg tab] Ondansetron Odt [Zofran Odt 4 mg 4 mg PO Q4PRN PRN #7 tab 08/03/17 (*)] Remicade Inj 100 mg (*) 08/03/17 Medical Decision Making ED Course/Re-evaluation: In the emergency department I discussed possible etiologies with the patient. I answered all her questions. Strep screen was negative. Based on the patient's presentation and physical exam findings she was given Augmentin. She is given a dose of Decadron in the emergency department. She was also given prescription for Zofran. She was given warnings prior to leaving. She will return with worsening symptoms. Differential Diagnosis: My differential includes but is not limited to pharyngitis, retropharyngeal abscess, peritonsillar abscess, tracheitis, epiglottitis, viral illness, small- bowel obstruction, perforation, ulcer colitis flare - Data Points Laboratory Results: 08/03/17 08/03/17 Unknown 19:18 Group A Strep Screen NEGATIVE (NEGATIVE) Group A Strep DNA Pending Medications Given: Discontinued Medications Ondansetron HCl (Zofran Odt) 4 mg PO EDNOW ONE Stop: 08/03/17 19:21 Last Admin: 08/03/17 19:21 Dose: 4 mg Departure - Departure Disposition: Home, Routine, Self-Care Clinical Impression: Sore throat Pharyngitis Qualifiers: Pharyngitis/tonsillitis etiology: unspecified etiology Qualified Code(s): J02.9 - Acute pharyngitis, unspecified Vomiting Qualifiers: Vomiting type: unspecified Vomiting Intractability: unspecified Nausea presence : with nausea Qualified Code(s): R11.2 - Nausea with vomiting, unspecified Condition: Good Instructions: Acute Nausea and Vomiting (ED), Pharyngitis (ED) Referrals: River Sousa DO [Primary Care Provider] - 3-4 days, if not improved Prescriptions: Amoxicillin/Clavulanate Pot [Augmentin 875 mg tab] 875 mg PO BID 10 Days tab Ondansetron Odt [Zofran Odt 4 mg (*)] 4 mg PO Q4PRN PRN #7 tab PRN Reason: For Nausea & Vomiting
[2017-08-03] MEDS ORDERED: DEXAMETHASONE 4 MG TAB PO ONE (19:54)
[2017-08-03] MEDS ORDERED: ONDANSETRON 0.8 MG/ML UDSYR PO ONE (19:54)
[2017-08-03] MEDS ORDERED: AMOXICILLIN/CLAVULANATE POT 875/125 MG TAB PO ONE (19:54)
== END 2017-08-03 20:22 | disposition home or self-care (01) ==
DX: J02.9 Acute pharyngitis, unspecified (principal)

== ENCOUNTER 2018-07-13 07:57 | Emergency (ER) | payer OTHER ==
[2018-07-13] MEDS ORDERED: NS 1,000 ML IV ONE (08:14)
--- NOTE | 2018-07-13 08:18 | EDPHY ---
H & P Stated Complaint: Lower abd pain x 3 days Time Seen by Provider: 07/13/18 08:10 HPI/ROS: CHIEF COMPLAINT: Lower abdominal pain HISTORY OF PRESENT ILLNESS: Patient is a 28-year-old female with a history of ulcerative colitis he receives Remicade infusions as well as Imuran. She states that 3 days ago she started having some lower abdominal discomfort and thought maybe it was her ulcerative colitis but it did not improve with her Remicade infusion on Sunday. It is now localized more to her right lower quadrant. No fever. No vomiting or diarrhea. No dysuria. She did have a urinary tract infection last week and finished ciprofloxacin a few days ago. She denies risk of . She does not have regular menses could she has a Mirena IUD. No upper abdominal pain. She has had ovarian cysts before but does not remember if they felt like this. Severity: Moderate Modifying factors: None REVIEW OF SYSTEMS: Constitutional: denies: chills, fever, recent illness, recent injury EENTM: denies: blurred vision, double vision, nose congestion Respiratory: denies: cough, shortness of breath Cardiac: denies: chest pain, irregular heart rate, lightheadedness, palpitations Gastrointestinal/Abdominal: See HPI Genitourinary: denies: dysuria, frequency, hematuria, pain Musculoskeletal: denies: joint pain, muscle pain Skin: denies: lesions, rash, jaundice, bruising Neurological: denies: headache, numbness, paresthesia, tingling, dizziness, weakness Hematologic/Lymphatic: denies: blood clots, easy bleeding, easy bruising Immunologic/allergic: denies: HIV/AIDS, transplant 10 systems reviewed and negative except as noted EXAM: GENERAL: Well-appearing, well-nourished and in no acute distress. HEAD: Atraumatic, normocephalic. EYES: Pupils equal round and reactive to light, extraocular movements intact, sclera anicteric, conjunctiva are normal. ENT: TMs normal, nares patent, oropharynx clear without exudates. Moist mucous membranes. NECK: Normal range of motion, supple without lymphadenopathy or JVD. LUNGS: Breath sounds clear to auscultation bilaterally and equal. No wheezes rales or rhonchi. HEART: Regular rate and rhythm without murmurs, rubs or gallops. ABDOMEN: Right lower quadrant pain but nontender, normoactive bowel sounds. No guarding, no rebound. No masses appreciated. : Vaginal exam with small amount of whitish discharge. Nontender, no cervical motion tenderness or fullness. BACK: No CVA tenderness, no spinal tenderness, step-offs or deformities EXTREMITIES: Normal range of motion, no pitting or edema. No clubbing or cyanosis. NEUROLOGICAL: Cranial nerves II through XII grossly intact. Normal speech, normal gait. 5/5 strength, normal movement in all extremities, normal sensation , normal reflexes PSYCH: Normal mood, normal affect. SKIN: Warm, dry, normal turgor, no visible rashes or lesions. Source: Patient Exam Limitations: No limitations - Personal History LMP (Females 10-55): IUD In Place - Medical/Surgical History Hx Asthma: No Hx Chronic Respiratory Disease: No Hx Diabetes: No Hx Cardiac Disease: No Hx Renal Disease: No Hx Cirrhosis: No Hx Alcoholism: No Hx HIV/AIDS: No Hx Splenectomy or Spleen Trauma: No Other PMH: PMH: ulcerative colitis - Family History Significant Family History: No pertinent family hx - Social History Smoking Status: Never smoked Alcohol Use: Sober Drug Use: None Constitutional: Initial Vital Signs Temperature (C) 37.1 C 07/13/18 08:01 Heart Rate 78 07/13/18 08:01 Respiratory Rate 16 07/13/18 08:01 Blood Pressure 103/75 07/13/18 08:01 O2 Sat (%) 97 07/13/18 08:01 O2 Delivery Mode Room Air Allergies/Adverse Reactions: nitrofurantoin [From Macrobid] Allergy (Verified 07/13/18 08:00) Home Medications: Medication Instructions Recorded Remicade Inj 100 mg (*) 08/03/17 Imuran 50 mg (*) 07/13/18 Medical Decision Making - Diagnostics Imaging Results: Imaging Impressions Abdomen Ultrasound 07/13/18 08:14 Impression: Appendix not visualized. Findings discussed with Emergency Department physicianRiver on 2018, 9:38 a.m. Pelvic/Renal Ultrasound 07/13/18 08:14 Impression: 1. Normal ovaries. No ovarian cyst, torsion, free fluid or adnexal mass. 2. Low-lying malpositioned intrauterine device. No uterine perforation. Findings discussed with Emergency Department physicianRiver at 2018, 9:[address] 07/13/18 09:43 Impression: 1. Normal appendix. Normal bowel pattern. 2. Hepatic steatosis, fatty sparing adjacent to gallbladder. 3. Bilateral nephrolithiasis. No ureteral calculi or hydroureteronephrosis. 4. Malpositioned intrauterine device with the sidearms and vertical strut penetrating the myometrium to the serosal surface. No surrounding fluid or stranding. Findings discussed with Emergency Department physician, River Lopez on 2018, 10:27. ED Course/Re-evaluation: 9:10 a.m. The patient continues to decline pain medication. Pelvic exam unremarkable. Cultures sent. Ultrasound results pending. 9:40 a.m. We discussed the ultrasound lab results which are reassuring overall. We discussed her IUD placement and she will have her OBGYN adjust it. She continues to have moderate pain. She would like to proceed with CT scan. Urinalysis pending. Differential Diagnosis: Partial list of the Differential diagnosis considered include but were not limited to; ovarian cyst, appendicitis, urinary tract infection and although unlikely based on the history and physical exam, I also considered kidney stone , , ectopic. I discussed these differential diagnoses and the plan with the patient as well as the usual and expected course. The patient understands that the diagnosis is provisional and that in medicine we are not always correct and that further workup is often warranted. Usual and customary warnings were given. All of the patient's questions were answered. The patient was instructed to return to the emergency department should the symptoms at all worsen or return, otherwise to followup with the physician as we discussed. - Data Points Laboratory Results: Laboratory Results 07/13/18 08:20 07/13/18 08:20 07/13/18 07/13/18 07/13/18 10:45 09:15 09:15 WBC RBC Hgb Hct MCV MCH MCHC RDW Plt Count MPV Neut % (Auto) Lymph % (Auto) Humphreys % (Auto) Eos % (Auto) Baso % (Auto) Nucleat RBC Rel Count Absolute Neuts (auto) Absolute Lymphs (auto) Absolute Monos (auto) Absolute Eos (auto) Absolute Basos (auto) Absolute Nucleated RBC Immature Gran % Immature Gran # Sodium Potassium Chloride Carbon Dioxide Anion Gap BUN Creatinine Estimated GFR Glucose Calcium Total Bilirubin Conjugated Bilirubin Unconjugated Bilirubin AST ALT Alkaline Phosphatase Total Protein Albumin Lipase Beta HCG, Qual Urine Color PALE YELLOW Urine Appearance CLEAR Urine pH 8.0 H (5.0-7.5) Ur Specific Carson > 1.035 H (1.002-1.030) Urine Protein NEGATIVE (NEGATIVE) Urine Ketones NEGATIVE (NEGATIVE) Urine Blood NEGATIVE (NEGATIVE) Urine Nitrate NEGATIVE (NEGATIVE) Urine Bilirubin NEGATIVE (NEGATIVE) Urine Urobilinogen NEGATIVE EU EU (0.2-1.0) Ur Leukocyte Esterase NEGATIVE (NEGATIVE) Urine RBC 1-3 /hpf /hpf (0-3) Urine WBC 1-3 /hpf /hpf (0-3) Ur Epithelial Cells TRACE /lpf /lpf (NONE-1+) Urine Glucose NEGATIVE (NEGATIVE) Elizabeth species DNA Pending C.trachomatis RNA (TMA) Pending Gardnerella DNA Probe Pending N.gonorrhoeae RNA (TMA) Pending Trichomonas DNA Probe Pending 07/13/18 07/13/18 07/13/18 08:20 08:20 08:20 WBC 4.22 10^3/uL 10^3/uL (3.80-9.50) RBC 4.35 10^6/uL 10^6/uL (4.18-5.33) Hgb 14.2 g/dL g/dL (12.6-16.3) Hct 40.0 % % (38.0-47.0) MCV 92.0 fL fL (81.5-99.8) MCH 32.6 pg pg (27.9-34.1) MCHC 35.5 g/dL g/dL (32.4-36.7) RDW 12.1 % % (11.5-15.2) Plt Count 221 10^3/uL 10^3/uL (150-400) MPV 10.6 fL fL (8.7-11.7) Neut % (Auto) 46.5 % % (39.3-74.2) Lymph % (Auto) 42.4 % % (15.0-45.0) Humphreys % (Auto) 7.8 % % (4.5-13.0) Eos % (Auto) 2.6 % % (0.6-7.6) Baso % (Auto) 0.5 % % (0.3-1.7) Nucleat RBC Rel Count 0.0 % % (0.0-0.2) Absolute Neuts (auto) 1.96 10^3/uL 10^3/uL (1.70-6.50) Absolute Lymphs (auto) 1.79 10^3/uL 10^3/uL (1.00-3.00) Absolute Monos (auto) 0.33 10^3/uL 10^3/uL (0.30-0.80) Absolute Eos (auto) 0.11 10^3/uL 10^3/uL (0.03-0.40) Absolute Basos (auto) 0.02 10^3/uL 10^3/uL (0.02-0.10) Absolute Nucleated RBC 0.00 10^3/uL 10^3/uL (0-0.01) Immature Gran % 0.2 % % (0.0-1.1) Immature Gran # 0.01 10^3/uL 10^3/uL (0.00-0.10) Sodium 140 mEq/L mEq/L (135-145) Potassium 4.2 mEq/L mEq/L (3.5-5.2) Chloride 107 mEq/L mEq/L (97-110) Carbon Dioxide 23 mEq/l mEq/l (22-31) Anion Gap 10 mEq/L mEq/L (6-14) BUN 10 mg/dL mg/dL (7-23) Creatinine 0.6 mg/dL mg/dL (0.6-1.0) Estimated GFR > 60 Glucose 88 mg/dL mg/dL (70-100) Calcium 9.0 mg/dL mg/dL (8.5-10.4) Total Bilirubin 1.1 mg/dL mg/dL (0.1-1.4) Conjugated Bilirubin 0.2 mg/dL mg/dL (0.0-0.5) Unconjugated Bilirubin 0.9 mg/dL mg/dL (0.0-1.1) AST 28 IU/L IU/L (14-46) ALT 45 IU/L IU/L (9-52) Alkaline Phosphatase 35 IU/L L IU/L (38-126) Total Protein 6.8 g/dL g/dL (6.3-8.2) Albumin 4.1 g/dL g/dL (3.5-5.0) Lipase 150 IU/L IU/L (23-300) Beta HCG, Qual NEGATIVE Urine Color Urine Appearance Urine pH Ur Specific Carson Urine Protein Urine Ketones Urine Blood Urine Nitrate Urine Bilirubin Urine Urobilinogen Ur Leukocyte Esterase Urine RBC Urine WBC Ur Epithelial Cells Urine Glucose Elizabeth species DNA C.trachomatis RNA (TMA) Gardnerella DNA Probe N.gonorrhoeae RNA (TMA) Trichomonas DNA Probe Medications Given: Discontinued Medications Acetaminophen (Tylenol) 1,000 mg PO EDNOW ONE Stop: 07/13/18 09:21 Last Admin: 07/13/18 09:24 Dose: 1,000 mg Sodium Chloride (Ns) 1,000 mls @ 0 mls/hr IV EDNOW ONE; Wide Open PRN Reason: Protocol Stop: 07/13/18 08:15 Last Admin: 07/13/18 09:58 Dose: 1,000 mls Departure - Departure Disposition: Home, Routine, Self-Care Clinical Impression: Abdominal pain Qualifiers: Abdominal location: right lower quadrant Qualified Code(s): R10.31 - Right lower quadrant pain IUD mechanical complication Qualifiers: Mechanical complication type: mechanical breakdown Encounter type: initial encounter Qualified Code(s): T83.31XA - Breakdown (mechanical) of intrauterine contraceptive device, initial encounter Condition: Fair Instructions: Abdominal Pain (ED) Additional Instructions: Follow-up with your OBGYN to have them evaluate your IUD which is malplaced. Referrals: River Sousa DO [Primary Care Provider] - As per Instructions [facility] [Provider Group] - 2-3 days, call for appt.
[2018-07-13 08:35] LABS: PLATELET COUNT 221 10^3/uL (150-400)
[2018-07-13] MEDS ORDERED: ACETAMINOPHEN 500 MG TAB PO ONE (09:20)
[2018-07-13] MEDS ORDERED: IOPAMIDOL (ISOVUE-300) 100 ML BTL ONE (09:45)
[2018-07-13 11:37] VITALS: BP 127/70
[2018-07-15 12:37] LABS: GC AMPLIFICATION GENPROBE NEGATIVE (NEGATIVE)
== END 2018-07-13 11:35 | disposition home or self-care (01) ==
DX: R10.31 Right lower quadrant pain (principal); T83.32XA Displacement of intrauterine contraceptive device, initial encounter; E86.9 Volume depletion, unspecified; K51.90 Ulcerative colitis, unspecified, without complications
CPT/HCPCS: Q9967